=== PATIENT | male | born 1975 | race Hispanic/Latino ===

== ENCOUNTER 2018-12-06 16:49 | Emergency (ER) | payer BC ==
[2018-12-06 16:56] VITALS: O2SAT 99
[2018-12-06] MEDS ORDERED: Sodium Chloride 0.9% 1,000 ML IV STA (17:56)
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
[2018-12-06 18:36] LABS: BASO % 0.4 % (0.0-2.0); EOS # 0.1 K/uL (0.0-0.7); EOS % 0.6 % (0.0-4.0); HEMOGLOBIN 14.7 g/dL (12.0-18.0); LYMPH # 1.1 K/uL (1.0-4.3); LYMPH % 11.2 % (20.0-40.0); MEAN CELL VOLUME 87.1 fl (80.0-94.0); MEAN CORPUSCULAR HEMOGLOBIN 29.1 pg (27.0-31.0); MEAN CORPUSCULAR HGB CONC 33.4 g/dL (33.0-37.0); MEAN PLATELET VOLUME 7.3 fl (7.2-11.7); MONO # 1.2 K/uL (0.0-0.8); MONO % 12.4 % (0.0-10.0); NEUT # 7.5 K/uL (1.8-7.0); NEUT % 75.4 % (50.0-75.0); RBC 5.06 Mil/uL (4.40-5.90); RED CELL DISTRIBUTION WIDTH 13.5 % (11.5-14.5)
[2018-12-06 18:43] LABS: INR 1.1; PROTHROMBIN TIME 12.1 Seconds (9.8-13.1)
[2018-12-06 18:45] LABS: PARTIAL THROMBOPLASTIN TIME 26.4 Seconds (25.6-37.1)
[2018-12-06 18:52] LABS: BLOOD UREA NITROGEN 14 mg/dl (9-20); CALCIUM 8.6 mg/dL (8.4-10.2); GFR NON-AFRICAN AMERICAN > 60
[2018-12-06] MEDS ORDERED: Iohexol 300 100 ML IJ ONE (19:00)
[2018-12-06] MEDS ORDERED: Sodium Chloride 0.9% 50 ML IV ONE (19:00)
[2018-12-06] MEDS ORDERED: cefTRIAXone (Rocephin) 250 mg Inj IM ONE (20:17)
[2018-12-06] MEDS ORDERED: Sterile Water 10 ML IV ONE (20:25)
[2018-12-06 20:27] LABS: BARBITURATES, UR NEGATIVE (NEGATIVE); BENZODIAZEPINES, UR NEGATIVE (NEGATIVE); OPIATES, UR POSITIVE (NEGATIVE); PHENCYCLIDINE, UR NEGATIVE (NEGATIVE)
[2018-12-06] MEDS ORDERED: Dexamethasone 4 mg/1 ml IM ONE (20:43)
[2018-12-06 22:08] VITALS: BP 137/87; PULSE 105; RESP 18; TEMP 99.4
--- NOTE | 2018-12-07 09:00 | CARD ---
APPROVED REPORT Date of service: 12/06/2018 EKG Measurement Heart [id number] <Conclusion> Sinus tachycardia Incomplete right bundle branch block Borderline ECG
--- NOTE | 2018-12-07 09:06 | RAD ---
Date of service: 12/06/2018 HISTORY: cough with blood COMPARISON: No prior. TECHNIQUE: Chest PA and lateral FINDINGS: LUNGS: Lungs appear slightly hyperinflated; rule out underlying chronic changes of COPD. There is a small elliptical shaped calcified granuloma right lower lung field. Possible small granuloma left medial upper lobe overlying the left posterior 5th rib mild biapical pleural thickening. Follow-up CT scan of the chest recommended. PLEURA: No significant pleural effusion identified. No pneumothorax apparent. CARDIOVASCULAR: No aortic atherosclerotic calcification present. Normal cardiac size. No pulmonary vascular congestion. OSSEOUS STRUCTURES: No significant abnormalities. VISUALIZED UPPER ABDOMEN: Normal. OTHER FINDINGS: None. IMPRESSION: Lungs appear slightly hyperinflated; rule out underlying chronic changes of COPD. There is a small elliptical shaped calcified granuloma right lower lung field. Possible small granuloma left medial upper lobe overlying the left posterior 5th rib mild biapical pleural thickening. Note that follow-up nonemergent CT scan of the chest recommended for further evaluation.. Note that this report was placed in PA review folder for follow up.
--- NOTE | 2018-12-07 10:47 | CT ---
Date of service: 12/06/2018 PROCEDURE: CT NECK WITH CONTRAST HISTORY: Left tonsillar pain abscess COMPARISON: None available. TECHNIQUE: CT of the neck with intravenous contrast. Coronal and sagittal reformats generated. Intravenous contrast dose: 95 cc Omnipaque 300 Radiation dose: Total exam DLP = 250.85 mGy-cm. This CT exam was performed using one or more of the following dose reduction techniques: Automated exposure control, adjustment of the mA and/or kV according to patient size, and/or use of iterative reconstruction technique. FINDINGS: NASOPHARYNX: Unremarkable. SUPRAHYOID NECK: There is any elliptical shaped structure located in the adjacent to the lateral aspect of the left palatine tonsil that measures approximately 2.15 cm trans x 1.4 cm AP that exhibits a peripheral rind of enhancement and central area of lower attenuation possibly the containing 1 or 2 tiny bubbles of air. Findings most likely represent a peritonsillar abscess however other etiologies including but not limited to necrotic squamous cell carcinoma not completely excluded. Recommend repeat CT scan following treatment to assess resolution. The left palatine tonsil also appears to be mildly enlarged though also somewhat medially displaced encroaching into the left aspect of the posterior oropharynx with narrowing of the or pharyngeal airway. There is an enlarged INFRAHYOID NECK: Unremarkable larynx, hypopharynx, and supraglottic space. Vocal cords intact. MASS: None. GLANDS: Parotid and submandibular glands unremarkable. . Questionable small nodule posterior aspect left lobe thyroid gland. Follow-up thyroid ultrasound recommended. LYMPH NODES: There is enlarged left jugulodigastric lymph node that measures approximately 18 mm x 13 mm x 41 mm. Several additional left-sided and few smaller right-sided level 1 and level 2 lymph nodes are present CERVICAL SPINE: Multilevel degenerative spondylosis of the cervical spine. There is slight kyphotic angulation deformity centered at approximately the C5-C6 level possibly due to patient positioning gantry however underlying element of muscle spasm may contribute. VASCULAR STRUCTURES: Unremarkable. OTHER FINDINGS: Minor biapical pleural thickening and parenchymal scarring changes. No evidence of apical pneumothorax. IMPRESSION: There is any elliptical shaped structure located in the adjacent to the lateral aspect of the left palatine tonsil that measures approximately 2.15 cm trans x 1.4 cm AP that exhibits a peripheral rind of enhancement and central area of lower attenuation possibly the containing 1 or 2 tiny bubbles of air. Findings most likely represent a peritonsillar abscess however other etiologies including but not limited to necrotic squamous cell carcinoma not completely excluded. Recommend repeat CT scan following treatment to assess resolution. The left palatine tonsil also appears to be mildly enlarged though also somewhat medially displaced encroaching into the left aspect of the posterior oropharynx with narrowing of the or pharyngeal airway. There is an enlarged Enlarged left-sided jugulodigastric lymph node likely reactive Questionable nodule left lobe thyroid gland. Recommend follow-up thyroid ultrasound.
--- NOTE | 2018-12-12 10:40 | ED PDOC ---
ED Additional Note - Date & Time of Evaluation Date of Evaluation: 12/12/18 Time of Evaluation: 10:30 - Physician Additional Note Physician Additional Note: + gonorrhea. 2nd attempt made to contact patient on phone number on file. No answer and unable to leave message. treated appropriately with Ceftriaxone and Azithromycin in ED. Letter to be sent to address on file.
== END 2018-12-06 20:34 | disposition left against medical advice (07) ==
LOC: H.ER 16:49
DX: J36 Peritonsillar abscess (principal); E04.1 Nontoxic single thyroid nodule
CPT/HCPCS: 70491; 71046; 80048; 85025; 85610; 85730; 86850; 86900; 87040; 87070; 87081; 87430; 87491; 87591; 93005; 96361; 96372; 96374; 99284; G0480; J0696; J2270; J7030; Q9967

== ENCOUNTER 2018-12-07 14:34 | Emergency (ER) | payer BC ==
[2018-12-07 15:03] VITALS: BP 122/72; PULSE 88; RESP 17; TEMP 98.8; O2SAT 99
--- NOTE | 2018-12-07 16:13 | ED PDOC ---
HPI: CCC, URI, Sore Throat Time Seen by Provider: 12/07/18 15:21 Chief Complaint (Nursing): ENT Problem Chief Complaint (Provider): Throat pain History Per: Patient Additional Complaint(s): Pt was in this ED yesterday, dx with peritonsillar abscess, left AMA to follow- up with PMD, given Rx for Clindamycin, returns today for reevaluation. Pt HIV+, undetectable viral load. Denies fever, difficulty swallowing, throat pain. Reports no longer draining blood like it was yesterday. Against Medical Advice - AMA Patient Left Against Medical Advice: The patient declines admission to the hospital and wishes to leave the Emergency Department. This action is against my medical advice. This decision was made with informed refusal. The patient was told that admission to the hospital is necessary. Explanation of the reasons why were discussed. The risks of leaving were explained to the patient and include, but are not limited to, worsening of known or currently unknown conditions, permanent disability and from undiagnosed or untreated conditions. The patient has the capacity to make this informed decision and understands my explanation of the current medical problem and risks of leaving. The patient voluntarily accepts these risks and signed an AMA form documenting our conversation. The patient was given the opportunity to ask questions and reconsider. The p atient was encouraged to return to the Emergency Department at any time for further care. Past Medical History Reviewed: Nursing Documentation, Vital Signs Vital Signs: Last Vital Signs Temp 98.8 F 12/07/18 15:01 Pulse 88 12/07/18 15:01 Resp 17 12/07/18 15:01 BP 122/72 12/07/18 15:01 Pulse Ox 99 12/07/18 15:01 - Medical History PMH: HIV - Family History Family History: States: Unknown Family Hx - Social History Current smoker - smoking cessation education provided: No Alcohol: None - Home Medications Home Medications: Ambulatory Orders Medication Instructions Recorded Clindamycin [Cleocin] 300 mg PO TID #30 cap 12/06/18 - Allergies Allergies/Adverse Reactions: Allergies Allergy/AdvReac Type Severity Reaction Status Date / Time No Known Allergies Allergy Verified 12/06/18 16:53 Review of Systems Constitutional: Negative for: Fever, Chills ENT: Positive for: Throat Swelling. Negative for: Throat Pain Respiratory: Negative for: Cough, Shortness of Breath Physical Exam - Reviewed Nursing Documentation Reviewed: Yes Vital Signs Reviewed: Yes - Physical Exam Appears: Positive for: Well, No Acute Distress Skin: Positive for: Normal Color, Warm, Dry Eye Exam: Positive for: Normal appearance, EOMI, PERRL ENT: Positive for: Pharynx Is (Erythematous), Pharyngeal Erythema, Tonsillar Swelling (Minimal L). Negative for: Tonsillar Exudate Neck: Positive for: Normal, Painless ROM, Supple Cardiovascular/Chest: Positive for: Regular Rate, Rhythm Respiratory: Positive for: Normal Breath Sounds - ECG O2 Sat by Pulse Oximetry: 99 Medical Decision Making Medical Decision Makin yo male with dx peritonsillar abscess. - ENT consult Case discussed with Dr. Wallace, will evaluate in ED for probable I&D. 1850 Patient elected to leave AMA, however patient left ER before provider could explain the risks of leaving against medical advice. Dr. Wallace informed of patient's decision. Disposition - Clinical Impression Clinical Impression: Throat pain - Disposition Disposition: Against Medical Advice Disposition Time: 18:50 Condition: UNKNOWN Forms: [employer] (Bengali)
[2018-12-07] MEDS ORDERED: Lidocaine 2% w Epi 1:100,000 Inj IJ ONE (16:34)
== END 2018-12-07 18:40 | disposition left against medical advice (07) ==
LOC: H.ER 14:34
DX: J39.0 Retropharyngeal and parapharyngeal abscess (principal)